=== PATIENT | male | born 1990 | race Caucasian/White ===

== ENCOUNTER 2017-09-03 17:35 | Emergency (ER) | payer OTHER ==
[~2017-09-03] VITALS: Ht 177.8 cm; Wt 122.5 kg
[2017-09-03 18:19] LABS: INFLUENZA A PATIENT NEGATIVE (NEGATIVE); INFLUENZA B PATIENT NEGATIVE (NEGATIVE)
--- NOTE | 2017-09-03 18:39 | PHYS DOC ---
Past History Past Medical History: No Pertinent History Past Surgical History: No Surgical History Alcohol Use: None Drug Use: None Adult General Chief Complaint Chief Complaint: HEADACHE HPI HPI 27-year-old male with no significant past medical history now presents the emergency room complaining of a several day history of body aches malaise fatigue intermittent mild headaches which are gradual onset. Patient also reports fevers chills and sweats. He has no stiff neck. No chest pain or shortness of breath. No productive cough. Denies abdominal pain. Patient is able to ambulate and function without difficulty. He is concerned he may have the flu Review of Systems Review of Systems Constitutional: Denies fever or chills [] Eyes: Denies change in visual acuity, redness, or eye pain [] HENT: Denies nasal congestion or sore throat [] Respiratory: Denies cough or shortness of breath [] Cardiovascular: No additional information not addressed in HPI [] GI: Denies abdominal pain, nausea, vomiting, bloody stools or diarrhea [] : Denies dysuria or hematuria [] Musculoskeletal: Denies back pain or joint pain [] Integument: Denies rash or skin lesions [] Neurologic: Denies headache, focal weakness or sensory changes [] Endocrine: Denies polyuria or polydipsia [] All other systems were reviewed and found to be within normal limits, except as documented in this note. Allergies Allergies Allergies Coded Allergies Type Severity Reaction Last Updated Verified Penicillins Allergy Intermediate 09/03/17 Yes Physical Exam Physical Exam Well-appearing patient no acute distress. Supple neck or lungs regular rhythm no tachycardia benign abdomen normal extremities and a nonfocal neurologic exam including cranial nerves. Patient has no meningismus whatsoever and is well- appearing with no clinical evidence of dehydration Constitutional: Well developed, well nourished, no acute distress, non-toxic appearance. [] HENT: Normocephalic, atraumatic, bilateral external ears normal, oropharynx moist, no oral exudates, nose normal. [] Eyes: PERRLA, EOMI, conjunctiva normal, no discharge. [] Neck: Normal range of motion, no tenderness, supple, no stridor. [] Cardiovascular:Heart rate regular rhythm, no murmur [] Lungs & Thorax: Bilateral breath sounds clear to auscultation [] Abdomen: Bowel sounds normal, soft, no tenderness, no masses, no pulsatile masses. [] Skin: Warm, dry, no erythema, no rash. [] Back: No tenderness, no CVA tenderness. [] Extremities: No tenderness, no cyanosis, no clubbing, ROM intact, no edema. [] Neurologic: Alert and oriented X 3, normal motor function, normal sensory function, no focal deficits noted. [] Psychologic: Affect normal, judgement normal, mood normal. [] Current Patient Data Vital Signs Vital Signs Date Time Temp Pulse Resp B/P (MAP) Pulse Ox O2 Delivery O2 Flow Rate FiO2 09/03/17 17:35 99.2 90 20 100 Room Air Lab Results Laboratory Tests Test 09/03/17 17:50 Influenza Type A (Rapid) Negative (NEGATIVE) Influenza Type B (Rapid) Negative (NEGATIVE) EKG EKG [] Radiology/Procedures Radiology/Procedures [] Course & Med Decision Making Course & Med Decision Making Pertinent Labs and Imaging studies reviewed. (See chart for details) Signs and symptoms consistent with viral syndrome. Influenza negative. Patient is well-appearing with benign exam and vital signs. Toradol shot given IM. No further workup or treatment indicated. Patient and family agree with outpatient follow-up and strict return precautions given [] Dragon Disclaimer Dragon Disclaimer This electronic medical record was generated, in whole or in part, using a voice recognition dictation system. Departure Departure: Impression: Primary Impression: Viral syndrome Disposition: 01 HOME, SELF-CARE Condition: GOOD Referrals: NON,STAFF (PCP) Patient Instructions: Viral Syndrome Additional Instructions: You have a viral syndrome. Rest and drink plenty of fluids. Take Tylenol every 4 hours and ibuprofen every 6 hours as needed for fever and aches and pains. Viral syndromes are self-limiting which means they get better on their own with supportive care. However, it does take time for your symptoms to resolve. They can often last 4-5 days so expect this is a possibility and follow-up with your doctor in 1-2 days. Return immediately for new severe or worsening symptoms ISAIAH GARZA MD Sep 03, 2017 18:39
[2017-09-03] MEDS ORDERED: KETOROLAC 60 MG/2 ML VIAL. IM ONE (18:45)
[2017-09-03 18:55] VITALS: BP 134/67
== END 2017-09-03 19:01 | disposition home or self-care (01) ==
LOC: ER 17:35
DX: B34.9 Viral infection, unspecified (principal); Z88.0 Allergy status to penicillin
CPT/HCPCS: 87804; 96372; 99284; J1885